=== PATIENT | male | born 1940 | race Caucasian/White ===

== ENCOUNTER → 2017-02-17 | Outpatient (REF) | payer MEDICARE ==
[2017-02-17 13:14] LABS: ALBUMIN 3.5 GM/DL (3.2-5.2); ALBUMIN/GLOBULIN RATIO 1.13 (1.00-1.93); ALKALINE PHOSPHATASE 78 U/L (45-117); ALT/SGPT 49 U/L (12-78); ANION GAP 8 MEQ/L (8-16); AST/SGOT 25 U/L (15-37); BILIRUBIN,TOTAL 0.7 MG/DL (0.2-1.0); BLOOD UREA NITROGEN 24 MG/DL (7-18); CALCIUM LEVEL 8.6 MG/DL (8.8-10.2); CARBON DIOXIDE LEVEL 28 MEQ/L (21-32); CHLORIDE LEVEL 106 MEQ/L (98-107); CREATININE FOR GFR 0.95 MG/DL (0.70-1.30); GLOMERULAR FILTRATION RATE > 60.0 (>42); GLUCOSE, FASTING 106 MG/DL (83-110); POTASSIUM SERUM 4.5 MEQ/L (3.5-5.1); SODIUM LEVEL 142 MEQ/L (136-145); TOTAL PROTEIN 6.6 GM/DL (6.4-8.2)
== END ==
LOC: M SFHCPLAZ 09:35
PROVIDERS: ATTEND Physician Assistant
DX: R93.8 Abnormal findings on diagnostic imaging of other specified body structures (principal)

== ENCOUNTER → 2017-02-22 | Outpatient (CLI) | payer MEDICARE ==
[~2017-02-22] MED LIST: ISOVUE-370 76% 100ML VIAL (Q9967) As Ordered ONE
--- NOTE | 2017-02-22 16:39 | REP ---
CT study of the chest with IV contrast: History: Cough. Abnormal chest x-ray. There is a 0.4 cm nodular density in the left base. No comparison chest imaging is available. CT contrast dose: 45 mL of Isovue-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 There is a 4 mm benign calcified granuloma in the left upper lobe lingular segment on axial CT image number 53 of 106 in series 201. There is another calcified granuloma in the posterior segment of the left upper lobe 3 mm in diameter on image number 40. No significant pulmonary nodule or mass lesion is seen. There is a normal sized left ge carinal 9 mm and mediastinal lymph node. A normal-sized subcarinal lymph node is seen measuring 11 mm in short axis dimension. A fat replaced normal size pretracheal lymph node is seen. No adenopathy is appreciated. No adrenal lesion is observed. There is a simple cyst in the upper pole right kidney 2.0 cm in diameter. The main pancreatic duct is a little prominent at 3.5 mm. No hepatic lesion is seen. The distal most portion the pancreas is not included in the imaging field of view. There is evidence of a small sliding hiatal hernia. No bony destructive lesion is seen. Impression: No active cardiopulmonary disease. Granulomatous calcifications noted. Mildly dilated main pancreatic duct etiology uncertain. Consider correlation with pancreatic enzymes and possibly, further pancreatic imaging. 2.0 cm cyst upper pole right kidney. Signed by Jamie Rodriguez MD 02/22/2017 04:41 P
== END ==
LOC: M RAD 07:35
PROVIDERS: ATTEND Physician Assistant
DX: R93.8 Abnormal findings on diagnostic imaging of other specified body structures (principal); R05 Cough; N28.1 Cyst of kidney, acquired; J98.4 Other disorders of lung; K86.89 Other specified diseases of pancreas
CPT/HCPCS: 71260; Q9967

== ENCOUNTER → 2017-02-24 | Outpatient (REF) | payer MEDICARE ==
[2017-02-24 13:49] LABS: AMYLASE 94 U/L (25-115)
== END ==
LOC: M SFHCPLAZ 10:15
PROVIDERS: ATTEND Physician Assistant
DX: K86.89 Other specified diseases of pancreas (principal)

== ENCOUNTER → 2017-02-25 | Outpatient (CLI) | payer MEDICARE ==
--- NOTE | 2017-02-25 10:06 | REP ---
MRCP: MRCP exam is accomplished utilizing the multiple heavily weighted T2 sequences in the axial and coronal planes. Correlation made with CT of the chest 02/22/2017. The gallbladder demonstrates no definite filling defect. There is no intrahepatic or extrahepatic biliary dilatation. The common bile duct measures 5 to 6 mm in maximum diameter. The pancreatic duct is normal in caliber with a maximum diameter of 3 mm. No filling defect or stricture is seen of the common bile duct. The liver, spleen, adrenals, and pancreas are grossly unremarkable. There is a cyst in the upper pole of the right kidney. No adenopathy or free fluid is seen in the visualized abdomen. IMPRESSION: No biliary abnormality detected. Signed by Hugo Oliveira MD 02/25/2017 07:57 P
== END ==
LOC: M RAD 07:22
PROVIDERS: ATTEND Physician Assistant
DX: K86.89 Other specified diseases of pancreas (principal); R93.8 Abnormal findings on diagnostic imaging of other specified body structures

== ENCOUNTER → 2017-04-25 | Outpatient (REF) | payer MEDICARE ==
[2017-04-25 16:14] LABS: ANION GAP 7 MEQ/L (8-16); BLOOD UREA NITROGEN 24 MG/DL (7-18); CALCIUM LEVEL 9.1 MG/DL (8.8-10.2); CARBON DIOXIDE LEVEL 25 MEQ/L (21-32); CHLORIDE LEVEL 109 MEQ/L (98-107); CREATININE FOR GFR 1.02 MG/DL (0.70-1.30); GLOMERULAR FILTRATION RATE > 60.0 (>42); GLUCOSE, FASTING 101 MG/DL (83-110); POTASSIUM SERUM 4.4 MEQ/L (3.5-5.1); SODIUM LEVEL 141 MEQ/L (136-145)
== END ==
LOC: M SFHCPLAZ 15:20
PROVIDERS: ATTEND Physician Assistant
DX: Z01.818 Encounter for other preprocedural examination (principal); H40.61 Glaucoma secondary to drugs, right eye
CPT/HCPCS: 36415; 80048; 93005; G0463

== ENCOUNTER → 2020-04-12 | Outpatient (CLI) | payer MEDICARE | LOC: M LABSMTC 11:22 | PROVIDERS: ATTEND Family Medicine | DX: Z11.59 Encounter for screening for other viral diseases (principal); Z03.89 Encounter for observation for other suspected diseases and conditions ruled out | CPT/HCPCS: C9803; U0003 ==

== ENCOUNTER 2023-04-06 18:36 | Inpatient (IN) | payer MEDICARE ==
[~2023-04-06] VITALS: Ht 160 cm; Wt 75.3 kg
[2023-04-06] MEDS ORDERED: ALEN70TA82 (18:43)
[2023-04-06] MEDS ORDERED: ATOR40TA75 (18:43)
[2023-04-06] MEDS ORDERED: LISI10TA22 (18:43)
[2023-04-06] MEDS ORDERED: LATANOPROST (18:43)
[2023-04-06] MEDS ORDERED: TIMO0.5S20 (18:43)
[2023-04-06] MEDS ORDERED: ELIQ2.5T PO (18:43)
[2023-04-06] MEDS ORDERED: HYDR12.55 (18:43)
[2023-04-06] MEDS ORDERED: ONDANSETRON 4MG 2ML VIAL IV ONE (19:50)
[2023-04-06] MEDS ORDERED: MORPHINE 4 MG/ML 1ML VIAL IV ONE (19:50)
[2023-04-06] MEDS ORDERED: NS 1,000 ML IV SCH (19:50)
[2023-04-06 20:04] LABS: BASO % 0.1 % (0.0-1.0); EOS % 0.1 % (0.0-3.0); HEMATOCRIT 47.9 % (42.0-52.0); HEMOGLOBIN 16.2 g/dl (13.5-17.5); LYMPH # 1.3 10^3/uL (1.5-5.0); LYMPH % 11.4 % (24.0-44.0); MEAN CORPUSCULAR HEMOGLOBIN 33.7 pg (27.0-33.0); MEAN CORPUSCULAR HGB CONC 33.8 g/dl (32.0-36.5); MEAN CORPUSCULAR VOLUME 99.6 fl (80.0-96.0); MONO % 8.4 % (2.0-8.0); NEUTROPHILS # 9.3 10^3/uL (1.5-8.5); NEUTROPHILS % 79.7 % (36.0-66.0); PLATELET COUNT, AUTOMATED 179 10^3/uL (150-450); RED BLOOD COUNT 4.81 10^6/uL (4.30-6.10); WHITE BLOOD COUNT 11.7 10^3/uL (4.0-10.0)
[2023-04-06 20:23] LABS: LIPASE 43 U/L (12-53)
[2023-04-06] MEDS: GASTROGRAFIN SOLUTION 30ML PO SCH ×2 (20:24→21:00)
[2023-04-06 20:25] LABS: ALKALINE PHOSPHATASE 77 U/L (46-116); ALT/SGPT 17 U/L (7.0-40); AST/SGOT 23 U/L (<34); BILIRUBIN,DIRECT 0.6 MG/DL (<0.4); BILIRUBIN,TOTAL 2.3 MG/DL (0.3-1.2); BLOOD UREA NITROGEN 25 MG/DL (9-23); CALCIUM LEVEL 9.5 MG/DL (8.3-10.6); CARBON DIOXIDE LEVEL 25 MMOL/L (20-31); CHLORIDE LEVEL 106 MMOL/L (98-107); CREATININE FOR GFR 1.06 MG/DL (0.70-1.30); GLOMERULAR FILTRATION RATE > 60.0 (>35); GLUCOSE, FASTING 136 MG/DL (74-106); POTASSIUM SERUM 4.2 MMOL/L (3.5-5.1); SODIUM LEVEL 140 MMOL/L (136-145); TOTAL PROTEIN 7.1 G/DL (5.7-8.2)
[2023-04-06] MEDS: METOPROLOL 5 MG/5 ML VIAL IV SCH ×2 (21:09→21:25)
[2023-04-06 21:18] LABS: CK-MB VALUE MASS < 1.0 NG/ML (<3.6)
[2023-04-06 21:20] LABS: CPK CREATINE PHOSPHOKINASE 159 U/L (46-171); MB/CK RELATIVE INDEX 0.62 (< OR =4)
[2023-04-06] MEDS ORDERED: PIPERACILLIN/TAZOBACTAM SOD 4.5 GM in D5W MINI-BAG PLUS 50 ML IV ONE (23:00)
[2023-04-06] MEDS ORDERED: MORPHINE 2 MG/ML 1ML VIAL IV PRN (23:45)
[2023-04-06] MEDS ORDERED: HEPARIN SOD (PORCINE) 5000UNITS/ML 1ML VIAL/SYRINGE IV PRN (23:45)
[2023-04-06] MEDS ORDERED: MORPHINE 4 MG/ML 1ML VIAL IV PRN (23:45)
[2023-04-06] MEDS: ONDANSETRON 4MG 2ML VIAL IV PRN (23:58)
[2023-04-07] VITALS (23 sets, daily range): BP systolic 104–132; BP diastolic 56–72; TEMP 97.1–99.9; O2SAT 89–99
[2023-04-07] MEDS: HEPARIN DRIP 25,000 UNITS in IV 1 EA IV SCH ×2 (00:04→23:14)
[2023-04-07 00:24] LABS: RSV AMPLIFICATION NEGATIVE (NEGATIVE)
[2023-04-07] MEDS: HYDROMORPHONE HCL 0.5 MG/ 0.5 ML SYRINGE IV PRN ×4 (01:35→12:26)
[2023-04-07] MEDS: NS 1,000 ML IV SCH ×2 (01:53→10:48)
[2023-04-07] MEDS ORDERED: ATOR40TA75 PO (03:25)
[2023-04-07] MEDS ORDERED: TIMO0.5S20 OU (03:25)
[2023-04-07] MEDS ORDERED: ALEN70TA82 PO (03:25)
[2023-04-07] MEDS ORDERED: LISI10TA22 PO (03:25)
[2023-04-07] MEDS ORDERED: XALA0.007 OU (03:25)
[2023-04-07] MEDS ORDERED: ELIQ5TAB PO (03:25)
[2023-04-07] MEDS ORDERED: HYDR12.55 PO (03:25)
[2023-04-07] MEDS ORDERED: EPIP0.3I2 IM (03:25)
[2023-04-07] MEDS ORDERED: HOME MED LIST COMPLETE! XX SCH (03:30)
[2023-04-07] MEDS: METOPROLOL 5 MG/5 ML VIAL IV SCH ×6 (04:40→22:31)
[2023-04-07] MEDS: PIPERACILLIN/TAZOBACTAM SOD 4.5 GM in D5W MINI-BAG PLUS 50 ML IV SCH ×3 (05:33→18:35)
[2023-04-07 07:58] LABS: HEMOGLOBIN 14.3 g/dl (13.5-17.5); MEAN CORPUSCULAR HEMOGLOBIN 34.3 pg (27.0-33.0); MEAN CORPUSCULAR VOLUME 100.7 fl (80.0-96.0); PLATELET COUNT, AUTOMATED 159 10^3/uL (150-450); RED BLOOD COUNT 4.17 10^6/uL (4.30-6.10); WHITE BLOOD COUNT 14.3 10^3/uL (4.0-10.0)
[2023-04-07] MEDS ORDERED: LR 1,000 ML IV ONE (08:35)
[2023-04-07 08:46] LABS: ALBUMIN 3.2 G/DL (3.2-5.2); ALKALINE PHOSPHATASE 59 U/L (46-116); ALT/SGPT 23 U/L (7.0-40); AST/SGOT 17 U/L (<34); BILIRUBIN,TOTAL 3.5 MG/DL (0.3-1.2); BLOOD UREA NITROGEN 27 MG/DL (9-23); CALCIUM LEVEL 8.8 MG/DL (8.3-10.6); CARBON DIOXIDE LEVEL 22 MMOL/L (20-31); CHLORIDE LEVEL 108 MMOL/L (98-107); CREATININE FOR GFR 1.19 MG/DL (0.70-1.30); GLOMERULAR FILTRATION RATE > 60.0 (>35); GLUCOSE, FASTING 149 MG/DL (74-106); MAGNESIUM LEVEL 1.8 MG/DL (1.8-2.4); POTASSIUM SERUM 4.1 MMOL/L (3.5-5.1); SODIUM LEVEL 139 MMOL/L (136-145)
[2023-04-07] MEDS: TIMOLOL MALEATE 0.5% OPHTH SOLN 5 ML OU SCH (09:24)
[2023-04-07] MEDS: LR 1,000 ML IV SCH (12:26)
[2023-04-07] MEDS: SIMETHICONE 80MG CHEW TAB PO SCH ×2 (16:44→20:42)
[2023-04-07] MEDS: LATANOPROST 0.005% OPHTH SOLN 2.5 ML OU SCH (20:42)
[2023-04-08] VITALS (19 sets, daily range): BP systolic 114–146; BP diastolic 72–92; TEMP 97.6–99; O2SAT 88–97
[2023-04-08] MEDS: PIPERACILLIN/TAZOBACTAM SOD 4.5 GM in D5W MINI-BAG PLUS 50 ML IV SCH ×5 (00:17→23:13)
[2023-04-08] MEDS: HYDROMORPHONE HCL 0.5 MG/ 0.5 ML SYRINGE IV PRN ×3 (00:18→09:07)
[2023-04-08] MEDS: LR 1,000 ML IV SCH ×3 (03:09→22:25)
[2023-04-08] MEDS: ONDANSETRON 4MG 2ML VIAL IV PRN ×2 (03:17→21:47)
[2023-04-08] MEDS: METOPROLOL 5 MG/5 ML VIAL IV SCH ×4 (04:27→22:25)
[2023-04-08 06:32] LABS: BASO % 0.1 % (0.0-1.0); HEMATOCRIT 45.3 % (42.0-52.0); HEMOGLOBIN 14.7 g/dl (13.5-17.5); LYMPH # 1.1 10^3/uL (1.5-5.0); LYMPH % 10.9 % (24.0-44.0); MEAN CORPUSCULAR HGB CONC 32.5 g/dl (32.0-36.5); MEAN CORPUSCULAR VOLUME 104.9 fl (80.0-96.0); MONO # 0.6 10^3/uL (0.0-0.8); MONO % 6.3 % (2.0-8.0); NEUTROPHILS % 82.1 % (36.0-66.0); PLATELET COUNT, AUTOMATED 143 10^3/uL (150-450); RED BLOOD COUNT 4.32 10^6/uL (4.30-6.10); WHITE BLOOD COUNT 9.8 10^3/uL (4.0-10.0)
[2023-04-08 07:20] LABS: ALBUMIN 2.9 G/DL (3.2-5.2); ALKALINE PHOSPHATASE 56 U/L (46-116); ALT/SGPT 20 U/L (7.0-40); AST/SGOT 21 U/L (<34); BILIRUBIN,TOTAL 2.5 MG/DL (0.3-1.2); BLOOD UREA NITROGEN 26 MG/DL (9-23); CALCIUM LEVEL 7.9 MG/DL (8.3-10.6); CARBON DIOXIDE LEVEL 25 MMOL/L (20-31); CHLORIDE LEVEL 108 MMOL/L (98-107); GLUCOSE, FASTING 143 MG/DL (74-106); MAGNESIUM LEVEL 1.8 MG/DL (1.8-2.4); PHOSPHORUS LEVEL 3.4 MG/DL (2.4-5.1); POTASSIUM SERUM 3.9 MMOL/L (3.5-5.1); SODIUM LEVEL 141 MMOL/L (136-145); TOTAL PROTEIN 5.8 G/DL (5.7-8.2)
[2023-04-08 08:01] LABS: CREATININE FOR GFR 1.13 MG/DL (0.70-1.30); GLOMERULAR FILTRATION RATE > 60.0 (>35)
[2023-04-08] MEDS ORDERED: MAG SULF 1GM/100ML (MAG RUN) 1 GM in IV 1 EA IV ONE (08:15)
[2023-04-08] MEDS: SIMETHICONE 80MG CHEW TAB PO SCH ×4 (09:07→20:41)
[2023-04-08] MEDS: TIMOLOL MALEATE 0.5% OPHTH SOLN 5 ML OU SCH (09:07)
[2023-04-08] MEDS ORDERED: METOPROLOL 5 MG/5 ML VIAL IV STA (13:50)
[2023-04-08] MEDS: LATANOPROST 0.005% OPHTH SOLN 2.5 ML OU SCH (20:41)
[2023-04-09] VITALS (18 sets, daily range): BP systolic 137–166; BP diastolic 77–95; TEMP 97–97.9; O2SAT 88–97
[2023-04-09] MEDS: METOPROLOL 5 MG/5 ML VIAL IV SCH ×8 (00:35→14:10)
[2023-04-09] MEDS: HYDROMORPHONE HCL 0.5 MG/ 0.5 ML SYRINGE IV PRN (02:00)
[2023-04-09] MEDS: HEPARIN DRIP 25,000 UNITS in IV 1 EA IV SCH ×2 (03:56→14:23)
[2023-04-09] MEDS: DIGOXIN INJ 0.5 MG/2 ML AMP IV SCH ×3 (04:45→14:27)
[2023-04-09] MEDS: PIPERACILLIN/TAZOBACTAM SOD 4.5 GM in D5W MINI-BAG PLUS 50 ML IV SCH ×3 (05:36→18:16)
[2023-04-09 06:52] LABS: BASO % 0.1 % (0.0-1.0); HEMATOCRIT 46.5 % (42.0-52.0); HEMOGLOBIN 15.1 g/dl (13.5-17.5); LYMPH # 0.9 10^3/uL (1.5-5.0); LYMPH % 11.3 % (24.0-44.0); MEAN CORPUSCULAR HEMOGLOBIN 33.6 pg (27.0-33.0); MEAN CORPUSCULAR HGB CONC 32.5 g/dl (32.0-36.5); MEAN CORPUSCULAR VOLUME 103.3 fl (80.0-96.0); MONO # 0.6 10^3/uL (0.0-0.8); MONO % 7.8 % (2.0-8.0); NEUTROPHILS # 6.6 10^3/uL (1.5-8.5); NEUTROPHILS % 80.4 % (36.0-66.0); PLATELET COUNT, AUTOMATED 142 10^3/uL (150-450); WHITE BLOOD COUNT 8.2 10^3/uL (4.0-10.0)
[2023-04-09 07:21] LABS: ALBUMIN 2.9 G/DL (3.2-5.2); ALKALINE PHOSPHATASE 64 U/L (46-116); ALT/SGPT 26 U/L (7.0-40); AST/SGOT 34 U/L (<34); BILIRUBIN,TOTAL 2.7 MG/DL (0.3-1.2); BLOOD UREA NITROGEN 25 MG/DL (9-23); CALCIUM LEVEL 8.7 MG/DL (8.3-10.6); CARBON DIOXIDE LEVEL 20 MMOL/L (20-31); CHLORIDE LEVEL 107 MMOL/L (98-107); CREATININE FOR GFR 1.02 MG/DL (0.70-1.30); GLOMERULAR FILTRATION RATE > 60.0 (>35); GLUCOSE, FASTING 169 MG/DL (74-106); PHOSPHORUS LEVEL 2.5 MG/DL (2.4-5.1); POTASSIUM SERUM 3.9 MMOL/L (3.5-5.1); SODIUM LEVEL 140 MMOL/L (136-145); TOTAL PROTEIN 6.1 G/DL (5.7-8.2)
[2023-04-09] MEDS ORDERED: GLUCOSE 4GM CHEW TABLET PO PRN (08:10)
[2023-04-09] MEDS ORDERED: DEXTROSE 50% 50ML SYRINGE IV PRN (08:10)
[2023-04-09] MEDS ORDERED: GLUCAGON INJ 1MG VIAL SC PRN (08:10)
[2023-04-09] MEDS ORDERED: D5W/0.45% SODIUM CHLORIDE 1,000 ML IV SCH (08:30)
[2023-04-09] MEDS: SIMETHICONE 80MG CHEW TAB PO SCH ×4 (09:23→23:50)
[2023-04-09] MEDS: TIMOLOL MALEATE 0.5% OPHTH SOLN 5 ML OU SCH (09:24)
[2023-04-09] MEDS: GASTROGRAFIN SOLUTION 30ML PO SCH (12:31)
[2023-04-09] MEDS ORDERED: METOCLOPRAMIDE INJ 10MG/2ML VIAL IV ONE (13:45)
[2023-04-09] MEDS ORDERED: ISOVUE-370 76% 100ML VIAL As Ordered ONE (13:51)
[2023-04-09] MEDS: METOPROLOL TART 50 MG TAB PO SCH ×2 (13:56→18:00)
[2023-04-09] MEDS ORDERED: METOPROLOL TART 50 MG TAB PO SCH (14:00)
[2023-04-09] MEDS ORDERED: DILT1TAB12 PO (14:05)
[2023-04-09 14:07] LABS: DIGOXIN LEVEL 0.9 NG/ML (0.8-2.0)
[2023-04-09] MEDS ORDERED: LR 1,000 ML IV ONE (14:15)
[2023-04-09] MEDS: ONDANSETRON 4MG 2ML VIAL IV PRN (15:26)
[2023-04-09] MEDS: INSULIN LISPRO (NovoLOG) PER UNIT SC SCH (18:16)
[2023-04-09 18:32] LABS: INR 1.38; PROTHROMBIN TIME 17.2 SECONDS (12.5-14.5)
[2023-04-09 18:33] LABS: PARTIAL THROMBOPLASTIN TIME 37.3 SECONDS (24.8-34.2)
[2023-04-09] MEDS ORDERED: ROCURONIUM BROMIDE 50MG/5ML VIAL As Ordered ONE ×2 (19:18→20:08)
[2023-04-09] MEDS ORDERED: LIDOCAINE 2% 100MG/5ML SDV (FOR ANES.) As Ordered ONE (19:18)
[2023-04-09] MEDS ORDERED: propofoL 200 MG/20 ML VIAL As Ordered ONE (19:18)
[2023-04-09] MEDS ORDERED: MIDAZOLAM INJ 2MG/2ML VIAL As Ordered ONE (19:18)
[2023-04-09] MEDS ORDERED: fentaNYL 100 MCG/2 ML INJECTION As Ordered ONE (19:19)
[2023-04-09] MEDS ORDERED: ONDANSETRON 4MG 2ML VIAL As Ordered ONE (20:08)
[2023-04-09] MEDS ORDERED: SUGAMMADEX SODIUM 500 MG/5 ML VIAL (BRIDION) As Ordered ONE (20:09)
[2023-04-09] MEDS ORDERED: HYDROmorphone HCL 2MG/ML 1ML VIAL As Ordered ONE (20:12)
[2023-04-09] MEDS ORDERED: ACETAMINOPHEN 1000MG 100ML IV BAG As Ordered ONE (21:25)
[2023-04-10] VITALS (35 sets, daily range): BP systolic 112–149; BP diastolic 59–88; TEMP 97.3–98.9; O2SAT 87–99
[2023-04-10] MEDS: METOPROLOL TART 50 MG TAB PO SCH
[2023-04-10] MEDS: KETOROLAC 30 MG/ML 1ML VIAL IV SCH ×4 (00:06→21:02)
[2023-04-10] MEDS: LATANOPROST 0.005% OPHTH SOLN 2.5 ML OU SCH ×2 (00:07→21:03)
[2023-04-10] MEDS: DIGOXIN INJ 0.5 MG/2 ML AMP IV SCH (00:07)
[2023-04-10] MEDS: LR 1,000 ML IV SCH ×4 (00:08→23:47)
[2023-04-10] MEDS ORDERED: dilTIAZem 25MG/5ML VIAL IV STA (00:19)
[2023-04-10] MEDS: PIPERACILLIN/TAZOBACTAM SOD 4.5 GM in D5W MINI-BAG PLUS 50 ML IV SCH ×5 (00:47→23:48)
[2023-04-10] MEDS: diltiaZEM 125 MG in NS 100 ML IV SCH ×2 (01:06→17:29)
[2023-04-10] MEDS: INSULIN LISPRO (NovoLOG) PER UNIT SC SCH ×4 (06:00→18:00)
[2023-04-10 06:23] LABS: BASO % 0.1 % (0.0-1.0); HEMATOCRIT 42.2 % (42.0-52.0); LYMPH # 0.9 10^3/uL (1.5-5.0); LYMPH % 10.2 % (24.0-44.0); MEAN CORPUSCULAR HEMOGLOBIN 33.6 pg (27.0-33.0); MEAN CORPUSCULAR HGB CONC 33.2 g/dl (32.0-36.5); MEAN CORPUSCULAR VOLUME 101.2 fl (80.0-96.0); MONO # 0.8 10^3/uL (0.0-0.8); MONO % 9.4 % (2.0-8.0); NEUTROPHILS # 6.8 10^3/uL (1.5-8.5); NEUTROPHILS % 79.9 % (36.0-66.0); PLATELET COUNT, AUTOMATED 144 10^3/uL (150-450); RED BLOOD COUNT 4.17 10^6/uL (4.30-6.10); WHITE BLOOD COUNT 8.4 10^3/uL (4.0-10.0)
[2023-04-10 06:53] LABS: BLOOD UREA NITROGEN 26 MG/DL (9-23); CALCIUM LEVEL 8.6 MG/DL (8.3-10.6); CARBON DIOXIDE LEVEL 25 MMOL/L (20-31); CHLORIDE LEVEL 107 MMOL/L (98-107); CREATININE FOR GFR 1.08 MG/DL (0.70-1.30); GLOMERULAR FILTRATION RATE > 60.0 (>35); GLUCOSE, FASTING 180 MG/DL (74-106); MAGNESIUM LEVEL 1.8 MG/DL (1.8-2.4); PHOSPHORUS LEVEL 2.7 MG/DL (2.4-5.1); POTASSIUM SERUM 3.7 MMOL/L (3.5-5.1); SODIUM LEVEL 139 MMOL/L (136-145)
[2023-04-10] MEDS ORDERED: CHLORASEPTIC SPRAY MT PRN (08:40)
[2023-04-10] MEDS: SIMETHICONE 80MG CHEW TAB PO SCH ×4 (09:00→21:00)
[2023-04-10] MEDS ORDERED: diltiaZEM 125 MG in NS 100 ML IV SCH ×2 (09:45→16:20)
[2023-04-10] MEDS: TIMOLOL MALEATE 0.5% OPHTH SOLN 5 ML OU SCH (09:50)
[2023-04-10] MEDS: PANTOPRAZOLE 40MG VIAL IV SCH (10:11)
[2023-04-10] MEDS ORDERED: NS 1,000 ML IV ONE (15:10)
[2023-04-10] MEDS ORDERED: METOPROLOL 5 MG/5 ML VIAL IV STA (15:45)
[2023-04-10] MEDS ORDERED: SCOPOLAMINE 1MG TRANSDERMAL PATCH TOP SCH (17:00)
[2023-04-10] MEDS: HEPARIN SOD (PORCINE) 5000UNITS/ML 1ML VIAL/SYRINGE SQ SCH (21:01)
[2023-04-11] VITALS (9 sets, daily range): BP systolic 114–138; BP diastolic 62–81; TEMP 97.4–98.5; O2SAT 90–97
[2023-04-11] MEDS: INSULIN LISPRO (NovoLOG) PER UNIT SC SCH ×4 (00:06→18:00)
[2023-04-11] MEDS: diltiaZEM 125 MG in NS 100 ML IV SCH ×3 (01:45→19:28)
[2023-04-11 05:43] LABS: BASO % 0.1 % (0.0-1.0); HEMATOCRIT 41.1 % (42.0-52.0); HEMOGLOBIN 13.6 g/dl (13.5-17.5); LYMPH # 1.2 10^3/uL (1.5-5.0); LYMPH % 13.7 % (24.0-44.0); MEAN CORPUSCULAR HEMOGLOBIN 33.6 pg (27.0-33.0); MEAN CORPUSCULAR HGB CONC 33.1 g/dl (32.0-36.5); MEAN CORPUSCULAR VOLUME 101.5 fl (80.0-96.0); MONO # 0.9 10^3/uL (0.0-0.8); MONO % 10.2 % (2.0-8.0); NEUTROPHILS # 6.8 10^3/uL (1.5-8.5); NEUTROPHILS % 75.7 % (36.0-66.0); PLATELET COUNT, AUTOMATED 159 10^3/uL (150-450); RED BLOOD COUNT 4.05 10^6/uL (4.30-6.10)
[2023-04-11] MEDS: PIPERACILLIN/TAZOBACTAM SOD 4.5 GM in D5W MINI-BAG PLUS 50 ML IV SCH ×3 (06:08→17:27)
[2023-04-11] MEDS: KETOROLAC 30 MG/ML 1ML VIAL IV SCH ×3 (06:09→22:15)
[2023-04-11] MEDS: HEPARIN SOD (PORCINE) 5000UNITS/ML 1ML VIAL/SYRINGE SQ SCH ×3 (06:09→22:16)
[2023-04-11 06:11] LABS: BLOOD UREA NITROGEN 25 MG/DL (9-23); CALCIUM LEVEL 7.8 MG/DL (8.3-10.6); CARBON DIOXIDE LEVEL 26 MMOL/L (20-31); CHLORIDE LEVEL 108 MMOL/L (98-107); CREATININE FOR GFR 1.06 MG/DL (0.70-1.30); GLOMERULAR FILTRATION RATE > 60.0 (>35); GLUCOSE, FASTING 128 MG/DL (74-106); PHOSPHORUS LEVEL 2.5 MG/DL (2.4-5.1); POTASSIUM SERUM 3.8 MMOL/L (3.5-5.1); SODIUM LEVEL 143 MMOL/L (136-145)
[2023-04-11] MEDS: LR 1,000 ML IV SCH ×3 (07:53→22:36)
[2023-04-11] MEDS: PANTOPRAZOLE 40MG VIAL IV SCH (10:04)
[2023-04-11] MEDS: DIGOXIN INJ 0.5 MG/2 ML AMP IV SCH (10:05)
[2023-04-11] MEDS: SIMETHICONE 80MG CHEW TAB PO SCH ×4 (10:06→22:05)
[2023-04-11] MEDS: TIMOLOL MALEATE 0.5% OPHTH SOLN 5 ML OU SCH (10:07)
[2023-04-11] MEDS: LATANOPROST 0.005% OPHTH SOLN 2.5 ML OU SCH (20:22)
[2023-04-12] VITALS (15 sets, daily range): BP systolic 112–154; BP diastolic 65–89; TEMP 97–98.3; O2SAT 88–95
[2023-04-12] MEDS: PIPERACILLIN/TAZOBACTAM SOD 4.5 GM in D5W MINI-BAG PLUS 50 ML IV SCH ×4 (00:30→17:47)
[2023-04-12] MEDS: INSULIN LISPRO (NovoLOG) PER UNIT SC SCH ×3 (00:45→12:00)
[2023-04-12] MEDS: diltiaZEM 125 MG in NS 100 ML IV SCH ×2 (03:53→10:10)
[2023-04-12] MEDS: LR 1,000 ML IV SCH ×2 (04:46→10:11)
[2023-04-12 05:22] LABS: HEMATOCRIT 35.5 % (42.0-52.0); HEMOGLOBIN 11.6 g/dl (13.5-17.5); MEAN CORPUSCULAR HEMOGLOBIN 33.3 pg (27.0-33.0); MEAN CORPUSCULAR HGB CONC 32.7 g/dl (32.0-36.5); PLATELET COUNT, AUTOMATED 158 10^3/uL (150-450); RED BLOOD COUNT 3.48 10^6/uL (4.30-6.10); WHITE BLOOD COUNT 6.3 10^3/uL (4.0-10.0)
[2023-04-12 05:47] LABS: ALBUMIN 1.6 G/DL (3.2-5.2); ALKALINE PHOSPHATASE 55 U/L (46-116); ALT/SGPT 26 U/L (7.0-40); AST/SGOT 26 U/L (<34); BILIRUBIN,TOTAL 1.2 MG/DL (0.3-1.2); BLOOD UREA NITROGEN 21 MG/DL (9-23); CALCIUM LEVEL 7.1 MG/DL (8.3-10.6); CARBON DIOXIDE LEVEL 26 MMOL/L (20-31); CHLORIDE LEVEL 112 MMOL/L (98-107); GLOMERULAR FILTRATION RATE > 60.0 (>35); GLUCOSE, FASTING 125 MG/DL (74-106); MAGNESIUM LEVEL 1.9 MG/DL (1.8-2.4); PHOSPHORUS LEVEL 2.2 MG/DL (2.4-5.1); POTASSIUM SERUM 3.7 MMOL/L (3.5-5.1); SODIUM LEVEL 144 MMOL/L (136-145); TOTAL PROTEIN 4.3 G/DL (5.7-8.2)
[2023-04-12] MEDS: KETOROLAC 30 MG/ML 1ML VIAL IV SCH ×2 (06:09→13:12)
[2023-04-12] MEDS: HEPARIN SOD (PORCINE) 5000UNITS/ML 1ML VIAL/SYRINGE SQ SCH ×2 (06:10→13:12)
[2023-04-12 06:59] LABS: LYMPHOCYTES 18 % (16-44); MONOCYTES 6 % (0-5); NEUTROPHILS 76 % (28-66); PLATELET ESTIMATE NORMAL (NORMAL)
[2023-04-12 07:00] LABS: ANISOCYTOSIS 1+; HYPOCHROMASIA 1+
[2023-04-12 07:16] LABS: DIGOXIN LEVEL 1.4 NG/ML (0.8-2.0)
[2023-04-12] MEDS ORDERED: POTASSIUM PHOSPHATE INJ 18 MMOL in D5W 250 ML IV ONE (09:00)
[2023-04-12] MEDS: TIMOLOL MALEATE 0.5% OPHTH SOLN 5 ML OU SCH (09:47)
[2023-04-12] MEDS: SIMETHICONE 80MG CHEW TAB PO SCH ×2 (10:11→12:48)
[2023-04-12] MEDS: DIGOXIN INJ 0.5 MG/2 ML AMP IV SCH (10:11)
[2023-04-12] MEDS: PANTOPRAZOLE 40MG VIAL IV SCH (10:11)
[2023-04-12] MEDS ORDERED: PERCOCET 5MG/325MG TAB PO PRN ×2 (14:05)
[2023-04-12] MEDS: METOPROLOL TART 50 MG TAB PO SCH ×2 (14:21→17:47)
[2023-04-12 16:09] LABS: HEMOGLOBIN A1c 6.6 % (4.0-6.0)
[2023-04-12 17:10] LABS: PROCALCITONIN 0.37 ng/ml
[2023-04-12] MEDS: LATANOPROST 0.005% OPHTH SOLN 2.5 ML OU SCH (20:10)
[2023-04-12] MEDS: APIXABAN 5 MG TAB (ELIQUIS) PO SCH (20:10)
[2023-04-12] MEDS: ATORVASTATIN 20 MG TAB PO SCH (20:10)
[2023-04-13] VITALS (22 sets, daily range): BP systolic 146–174; BP diastolic 70–92; TEMP 97.4–98.7; O2SAT 92–98
[2023-04-13] MEDS: METOPROLOL TART 50 MG TAB PO SCH ×4 (00:29→18:41)
[2023-04-13] MEDS: PIPERACILLIN/TAZOBACTAM SOD 4.5 GM in D5W MINI-BAG PLUS 50 ML IV SCH ×4 (00:29→18:42)
[2023-04-13 05:43] LABS: HEMATOCRIT 37.6 % (42.0-52.0); HEMOGLOBIN 12.5 g/dl (13.5-17.5); MEAN CORPUSCULAR HEMOGLOBIN 33.6 pg (27.0-33.0); MEAN CORPUSCULAR HGB CONC 33.2 g/dl (32.0-36.5); MEAN CORPUSCULAR VOLUME 101.1 fl (80.0-96.0); PLATELET COUNT, AUTOMATED 206 10^3/uL (150-450); RED BLOOD COUNT 3.72 10^6/uL (4.30-6.10)
[2023-04-13 05:59] LABS: ALBUMIN 1.8 G/DL (3.2-5.2); ALKALINE PHOSPHATASE 70 U/L (46-116); ALT/SGPT 35 U/L (7.0-40); AST/SGOT 12 U/L (<34); BILIRUBIN,TOTAL 1.3 MG/DL (0.3-1.2); BLOOD UREA NITROGEN 17 MG/DL (9-23); CALCIUM LEVEL 7.3 MG/DL (8.3-10.6); CARBON DIOXIDE LEVEL 26 MMOL/L (20-31); CHLORIDE LEVEL 113 MMOL/L (98-107); GLOMERULAR FILTRATION RATE > 60.0 (>35); GLUCOSE, FASTING 136 MG/DL (74-106); MAGNESIUM LEVEL 2.1 MG/DL (1.8-2.4); PHOSPHORUS LEVEL 2.4 MG/DL (2.4-5.1); POTASSIUM SERUM 3.8 MMOL/L (3.5-5.1); SODIUM LEVEL 145 MMOL/L (136-145); TOTAL PROTEIN 4.5 G/DL (5.7-8.2)
[2023-04-13 07:33] LABS: ATYPICAL LYMPH 1 % (0-5); EOSINOPHILS 1 % (0-3); LYMPHOCYTES 21 % (16-44); MONOCYTES 8 % (0-5); NEUTROPHILS 69 % (28-66); PLATELET ESTIMATE NORMAL (NORMAL)
[2023-04-13 07:34] LABS: ANISOCYTOSIS 1+
[2023-04-13] MEDS: FUROSEMIDE 40MG/4ML VIAL IV SCH (09:12)
[2023-04-13] MEDS: PANTOPRAZOLE 40MG TAB (PROTONIX) PO SCH (09:12)
[2023-04-13] MEDS: APIXABAN 5 MG TAB (ELIQUIS) PO SCH ×2 (09:13→21:11)
[2023-04-13] MEDS: TIMOLOL MALEATE 0.5% OPHTH SOLN 5 ML OU SCH (09:13)
[2023-04-13] MEDS: ACETAMINOPHEN TAB 650MG DOSE (2X325MG) PO PRN (10:11)
[2023-04-13] MEDS: ATORVASTATIN 20 MG TAB PO SCH (21:11)
[2023-04-13] MEDS: LATANOPROST 0.005% OPHTH SOLN 2.5 ML OU SCH (21:11)
[2023-04-14] VITALS (20 sets, daily range): BP systolic 142–168; BP diastolic 54–93; TEMP 96.8–98; O2SAT 93–98
[2023-04-14] MEDS: METOPROLOL TART 50 MG TAB PO SCH ×2 (01:17→06:06)
[2023-04-14] MEDS: PIPERACILLIN/TAZOBACTAM SOD 4.5 GM in D5W MINI-BAG PLUS 50 ML IV SCH ×3 (01:17→12:31)
[2023-04-14 06:36] LABS: BASO % 0.5 % (0.0-1.0); EOS # 0.4 10^3/uL (0.0-0.5); EOS % 4.5 % (0.0-3.0); HEMATOCRIT 39.5 % (42.0-52.0); LYMPH # 1.5 10^3/uL (1.5-5.0); LYMPH % 19.1 % (24.0-44.0); MEAN CORPUSCULAR HEMOGLOBIN 33.2 pg (27.0-33.0); MEAN CORPUSCULAR HGB CONC 32.9 g/dl (32.0-36.5); MONO # 0.7 10^3/uL (0.0-0.8); MONO % 8.4 % (2.0-8.0); NEUTROPHILS # 5.1 10^3/uL (1.5-8.5); NEUTROPHILS % 66.1 % (36.0-66.0); PLATELET COUNT, AUTOMATED 232 10^3/uL (150-450); RED BLOOD COUNT 3.91 10^6/uL (4.30-6.10); WHITE BLOOD COUNT 7.8 10^3/uL (4.0-10.0)
[2023-04-14 07:15] LABS: ALBUMIN 1.8 G/DL (3.2-5.2); ALKALINE PHOSPHATASE 79 U/L (46-116); ALT/SGPT 47 U/L (7.0-40); AST/SGOT 44 U/L (<34); BLOOD UREA NITROGEN 16 MG/DL (9-23); CALCIUM LEVEL 8.2 MG/DL (8.3-10.6); CARBON DIOXIDE LEVEL 25 MMOL/L (20-31); CHLORIDE LEVEL 111 MMOL/L (98-107); CREATININE FOR GFR 0.93 MG/DL (0.70-1.30); GLOMERULAR FILTRATION RATE > 60.0 (>35); GLUCOSE, FASTING 172 MG/DL (74-106); PHOSPHORUS LEVEL 2.7 MG/DL (2.4-5.1); POTASSIUM SERUM 3.7 MMOL/L (3.5-5.1); SODIUM LEVEL 142 MMOL/L (136-145); TOTAL PROTEIN 4.8 G/DL (5.7-8.2)
[2023-04-14] MEDS: FUROSEMIDE 40MG/4ML VIAL IV SCH (08:49)
[2023-04-14] MEDS: PANTOPRAZOLE 40MG TAB (PROTONIX) PO SCH (08:50)
[2023-04-14] MEDS: TIMOLOL MALEATE 0.5% OPHTH SOLN 5 ML OU SCH (08:50)
[2023-04-14] MEDS: APIXABAN 5 MG TAB (ELIQUIS) PO SCH ×2 (08:50→20:09)
[2023-04-14] MEDS: ACETAMINOPHEN TAB 650MG DOSE (2X325MG) PO PRN (10:35)
[2023-04-14] MEDS: metroNIDAZOLE (FLAGYL) 500MG TABLET PO SCH ×2 (17:31→20:08)
[2023-04-14] MEDS: LevoFLOXacin 500 MG TABLET PO SCH (17:32)
[2023-04-14] MEDS: ATORVASTATIN 20 MG TAB PO SCH (20:09)
[2023-04-14] MEDS: LATANOPROST 0.005% OPHTH SOLN 2.5 ML OU SCH (20:09)
[2023-04-14] MEDS: METOPROLOL TARTRATE 100MG TAB PO SCH (20:09)
[2023-04-15 04:26] VITALS: BP 148/88; TEMP 96.5; O2SAT 96
[2023-04-15 07:30] LABS: BASO % 0.3 % (0.0-1.0); EOS # 0.3 10^3/uL (0.0-0.5); EOS % 3.3 % (0.0-3.0); HEMATOCRIT 38.5 % (42.0-52.0); LYMPH # 1.5 10^3/uL (1.5-5.0); LYMPH % 16.9 % (24.0-44.0); MEAN CORPUSCULAR HEMOGLOBIN 33.8 pg (27.0-33.0); MEAN CORPUSCULAR HGB CONC 33.8 g/dl (32.0-36.5); MONO # 0.7 10^3/uL (0.0-0.8); NEUTROPHILS # 6.1 10^3/uL (1.5-8.5); NEUTROPHILS % 69.9 % (36.0-66.0); PLATELET COUNT, AUTOMATED 263 10^3/uL (150-450); RED BLOOD COUNT 3.85 10^6/uL (4.30-6.10); WHITE BLOOD COUNT 8.8 10^3/uL (4.0-10.0)
[2023-04-15 07:48] LABS: ALBUMIN 1.8 G/DL (3.2-5.2); ALKALINE PHOSPHATASE 69 U/L (46-116); ALT/SGPT 50 U/L (7.0-40); AST/SGOT 40 U/L (<34); BILIRUBIN,TOTAL 0.9 MG/DL (0.3-1.2); BLOOD UREA NITROGEN 14 MG/DL (9-23); CARBON DIOXIDE LEVEL 27 MMOL/L (20-31); CHLORIDE LEVEL 108 MMOL/L (98-107); CREATININE FOR GFR 0.84 MG/DL (0.70-1.30); GLOMERULAR FILTRATION RATE > 60.0 (>35); GLUCOSE, FASTING 119 MG/DL (74-106); MAGNESIUM LEVEL 1.8 MG/DL (1.8-2.4); PHOSPHORUS LEVEL 2.6 MG/DL (2.4-5.1); POTASSIUM SERUM 3.7 MMOL/L (3.5-5.1); SODIUM LEVEL 142 MMOL/L (136-145); TOTAL PROTEIN 4.6 G/DL (5.7-8.2)
[2023-04-15 08:12] VITALS: BP 142/52; TEMP 97.6; O2SAT 95
[2023-04-15] MEDS: PANTOPRAZOLE 40MG TAB (PROTONIX) PO SCH (09:04)
[2023-04-15] MEDS: metroNIDAZOLE (FLAGYL) 500MG TABLET PO SCH ×3 (09:04→20:08)
[2023-04-15] MEDS: METOPROLOL TARTRATE 100MG TAB PO SCH ×2 (09:07→20:08)
[2023-04-15] MEDS: FUROSEMIDE 20 MG TAB PO SCH (09:07)
[2023-04-15] MEDS: APIXABAN 5 MG TAB (ELIQUIS) PO SCH ×2 (09:07→20:08)
[2023-04-15] MEDS: TIMOLOL MALEATE 0.5% OPHTH SOLN 5 ML OU SCH (09:08)
[2023-04-15] MEDS ORDERED: traMADol 50 MG TAB PO PRN (10:20)
[2023-04-15 17:45] VITALS: BP 165/90; TEMP 97.9; O2SAT 97
[2023-04-15] MEDS: LevoFLOXacin 500 MG TABLET PO SCH (18:04)
[2023-04-15] MEDS: ATORVASTATIN 20 MG TAB PO SCH (20:04)
[2023-04-15] MEDS: LATANOPROST 0.005% OPHTH SOLN 2.5 ML OU SCH (20:08)
[2023-04-16] MEDS ORDERED: RAMELTEON 8 MG TAB (ROZEREM) PO PRN (00:40)
[2023-04-16 05:58] VITALS: BP 150/100; TEMP 97.9; O2SAT 96
[2023-04-16 06:10] LABS: HEMOGLOBIN 12.8 g/dl (13.5-17.5); MEAN CORPUSCULAR HEMOGLOBIN 33.8 pg (27.0-33.0); MEAN CORPUSCULAR HGB CONC 33.7 g/dl (32.0-36.5); MEAN CORPUSCULAR VOLUME 100.3 fl (80.0-96.0); PLATELET COUNT, AUTOMATED 259 10^3/uL (150-450); RED BLOOD COUNT 3.79 10^6/uL (4.30-6.10); WHITE BLOOD COUNT 9.5 10^3/uL (4.0-10.0)
[2023-04-16 06:28] LABS: ALBUMIN 1.7 G/DL (3.2-5.2); ALKALINE PHOSPHATASE 66 U/L (46-116); ALT/SGPT 46 U/L (7.0-40); AST/SGOT 33 U/L (<34); BILIRUBIN,TOTAL 0.7 MG/DL (0.3-1.2); BLOOD UREA NITROGEN 18 MG/DL (9-23); CALCIUM LEVEL 8.1 MG/DL (8.3-10.6); CARBON DIOXIDE LEVEL 24 MMOL/L (20-31); CHLORIDE LEVEL 108 MMOL/L (98-107); CREATININE FOR GFR 0.83 MG/DL (0.70-1.30); GLOMERULAR FILTRATION RATE > 60.0 (>35); GLUCOSE, FASTING 140 MG/DL (74-106); POTASSIUM SERUM 3.8 MMOL/L (3.5-5.1); SODIUM LEVEL 140 MMOL/L (136-145); TOTAL PROTEIN 4.5 G/DL (5.7-8.2)
[2023-04-16 06:37] VITALS: BP 140/90
[2023-04-16] MEDS: FUROSEMIDE 20 MG TAB PO SCH (08:15)
[2023-04-16] MEDS: metroNIDAZOLE (FLAGYL) 500MG TABLET PO SCH (08:15)
[2023-04-16 08:16] VITALS: BP 139/80
[2023-04-16] MEDS: PANTOPRAZOLE 40MG TAB (PROTONIX) PO SCH (08:16)
[2023-04-16] MEDS: APIXABAN 5 MG TAB (ELIQUIS) PO SCH (08:16)
[2023-04-16] MEDS: METOPROLOL TARTRATE 100MG TAB PO SCH (08:16)
[2023-04-16] MEDS: TIMOLOL MALEATE 0.5% OPHTH SOLN 5 ML OU SCH (08:17)
[2023-04-16] MEDS ORDERED: TRAM50TA2 PO (13:40)
[2023-04-16] MEDS ORDERED: LOPR1TAB7 PO (13:40)
[2023-04-16] MEDS ORDERED: ACET1TAB55 PO (13:40)
[2023-04-16] MEDS ORDERED: LEVO1TAB39 PO (13:44)
[2023-04-16] MEDS ORDERED: METR-265 PO (13:44)
== END 2023-04-16 15:20 | disposition home or self-care (01) | DRG 853 ==
LOC: M ED 18:36 → M ED INP 23:42 → ENRESERV 04-07 00:36 → M PCU 04-07 01:02 → M MSPAV 04-15 17:49
PROVIDERS: ADMIT Internal Medicine; ATTEND Internal Medicine
PROC: 0DBN0ZZ Excision of Sigmoid Colon, Open Approach (ICD-10-PCS; 2023-04-09)
PROC: 0D1E0Z4 Bypass Large Intestine to Cutaneous, Open Approach (ICD-10-PCS; principal; 2023-04-09 15:43)
DX: A41.9 Sepsis, unspecified organism (principal); K65.1 Peritoneal abscess; K57.20 Diverticulitis of large intestine with perforation and abscess without bleeding; K56.7 Ileus, unspecified; I10 Essential (primary) hypertension; K21.9 Gastro-esophageal reflux disease without esophagitis; I48.91 Unspecified atrial fibrillation; E78.5 Hyperlipidemia, unspecified; G47.33 Obstructive sleep apnea (adult) (pediatric); H40.9 Unspecified glaucoma; R91.8 Other nonspecific abnormal finding of lung field; Z91.119 Patient's noncompliance with dietary regimen due to unspecified reason; Z91.030 Bee allergy status; Z79.899 Other long term (current) drug therapy; Z96.643 Presence of artificial hip joint, bilateral; D64.89 Other specified anemias; Z79.01 Long term (current) use of anticoagulants

== ENCOUNTER 2023-05-08 09:35 | Emergency (ER) | payer MEDICARE ==
[~2023-05-08] VITALS: Ht 160 cm; Wt 67.9 kg
[~2023-05-08 09:35] MED LIST changes: +ACET1TAB55 PO; +ALEN70TA82; +ALEN70TA82 PO; +ATOR40TA75; +ATOR40TA75 PO; +DILT1TAB12 PO; +ELIQ2.5T PO; +ELIQ5TAB PO; +EPIP0.3I2 IM; +HYDR12.55; +HYDR12.55 PO; -ISOVUE-370 76% 100ML VIAL (Q9967) As Ordered ONE; +LATANOPROST; +LEVO1TAB39 PO; +LISI10TA22; +LISI10TA22 PO; +LOPR1TAB7 PO; +METR-265 PO; +TIMO0.5S20; +TIMO0.5S20 OU; +TRAM50TA2 PO; +XALA0.007 OU
[2023-05-08 10:08] LABS: BASO % 0.2 % (0.0-1.0); EOS # 0.1 10^3/uL (0.0-0.5); EOS % 1.1 % (0.0-3.0); HEMATOCRIT 42.5 % (42.0-52.0); HEMOGLOBIN 13.7 g/dl (13.5-17.5); LYMPH # 1.5 10^3/uL (1.5-5.0); LYMPH % 16.2 % (24.0-44.0); MEAN CORPUSCULAR HEMOGLOBIN 32.5 pg (27.0-33.0); MEAN CORPUSCULAR HGB CONC 32.2 g/dl (32.0-36.5); MEAN CORPUSCULAR VOLUME 100.7 fl (80.0-96.0); MONO % 10.1 % (2.0-8.0); NEUTROPHILS # 6.7 10^3/uL (1.5-8.5); NEUTROPHILS % 72.1 % (36.0-66.0); PLATELET COUNT, AUTOMATED 148 10^3/uL (150-450); RED BLOOD COUNT 4.22 10^6/uL (4.30-6.10); WHITE BLOOD COUNT 9.4 10^3/uL (4.0-10.0)
[2023-05-08 10:38] LABS: CK-MB VALUE MASS < 1.0 NG/ML (<3.6); LIPASE 68 U/L (12-53)
[2023-05-08 10:40] LABS: ALBUMIN 3.3 G/DL (3.2-5.2); ALKALINE PHOSPHATASE 81 U/L (46-116); ALT/SGPT 37 U/L (7.0-40); AST/SGOT 25 U/L (<34); BILIRUBIN,DIRECT 0.3 MG/DL (<0.4); BILIRUBIN,TOTAL 1.3 MG/DL (0.3-1.2); BLOOD UREA NITROGEN 16 MG/DL (9-23); CALCIUM LEVEL 8.9 MG/DL (8.3-10.6); CARBON DIOXIDE LEVEL 26 MMOL/L (20-31); CHLORIDE LEVEL 105 MMOL/L (98-107); CREATININE FOR GFR 0.97 MG/DL (0.70-1.30); GLOMERULAR FILTRATION RATE > 60.0 (>35); GLUCOSE, FASTING 166 MG/DL (74-106); POTASSIUM SERUM 4.5 MMOL/L (3.5-5.1); SODIUM LEVEL 139 MMOL/L (136-145); TOTAL PROTEIN 6.3 G/DL (5.7-8.2)
[2023-05-08 11:03] LABS: CPK CREATINE PHOSPHOKINASE 47 U/L (46-171); MB/CK RELATIVE INDEX 2.12 (< OR =4)
[2023-05-08] MEDS ORDERED: METO50TA7 PO (11:30)
[2023-05-08] MEDS ORDERED: ISOVUE-370 76% 100ML VIAL As Ordered ONE (11:41)
[2023-05-08 11:43] LABS: MB/CK RELATIVE INDEX 2.17 (< OR =4)
[2023-05-08] MEDS ORDERED: SUCRALFATE SUSP 1GM/10ML UD PO ONE (13:10)
[2023-05-08 15:01] VITALS: BP 150/80; TEMP 97.8; O2SAT 97
== END 2023-05-08 15:04 | disposition home or self-care (01) ==
LOC: M ED 09:35
DX: K85.90 Acute pancreatitis without necrosis or infection, unspecified (principal); I48.91 Unspecified atrial fibrillation; I10 Essential (primary) hypertension; E78.5 Hyperlipidemia, unspecified; G47.33 Obstructive sleep apnea (adult) (pediatric); K21.9 Gastro-esophageal reflux disease without esophagitis; H40.9 Unspecified glaucoma; Z79.01 Long term (current) use of anticoagulants; Z79.899 Other long term (current) drug therapy
CPT/HCPCS: 36415; 71045; 71275; 74177; 80048; 80076; 82550; 82553; 83690; 84443; 84484; 85025; 93005; 93041; 94760; 99285; Q9967